=== PATIENT | male | born 1945 | race Caucasian/White ===

== ENCOUNTER 2017-06-27 22:02 | Inpatient (IN) | payer OTHER ==
[~2017-06-27] VITALS: Ht 180.3 cm; Wt 118.2 kg
[~2017-06-27 22:02] MED LIST: ACID CONTROL150 MG PO; ENDOCET 10-3251 EACH PO; HYDROCHLOROTHIA25 MG PO; LIPITOR40 MG PO; LITE COAT ASPI325 M1 PO; SPIRIVA1 INHALATI IH; STOOL SOFTENER100 MG PO
[2017-06-28] MEDS ORDERED: IRON325 M1 PO (06:18)
[2017-06-28 06:25] VITALS: BP 177/94
[2017-06-28 07:15] VITALS: BP 177/94
[2017-06-28 11:17] VITALS: BP 155/93
[2017-06-28 15:42] VITALS: BP 137/75
[2017-06-28 20:24] VITALS: BP 125/76
[2017-06-29 00:20] VITALS: BP 138/88
[2017-06-29 04:24] VITALS: BP 137/68
[2017-06-29 04:54] LABS: HEMATOCRIT 37.2 % (38.0-50.0); HEMOGLOBIN 12.5 G/DL (12.5-16.6); MCV 90.1 FL (86-99)
[2017-06-29] MEDS ORDERED: OXYCONTIN15 MG PO (08:28)
[2017-06-29 08:36] VITALS: BP 132/76
[2017-06-29 12:00] VITALS: BP 161/78
[2017-06-29 15:56] VITALS: BP 140/68
[2017-06-29 19:49] VITALS: BP 147/83
[2017-06-30 00:08] VITALS: BP 136/77
[2017-06-30 04:06] VITALS: BP 133/66
[2017-06-30 05:34] LABS: HEMATOCRIT 38.6 % (38.0-50.0); HEMOGLOBIN 12.7 G/DL (12.5-16.6); MCV 91.7 FL (86-99)
[2017-06-30 08:00] VITALS: BP 133/63
[2017-06-30] MEDS ORDERED: CELEBREX200 MG PO (08:09)
[2017-06-30 11:15] VITALS: BP 123/67
== END 2017-06-30 11:23 | disposition home or self-care (01) | DRG 483 ==
LOC: ENRESERV 22:02 → 2SOUTH 06-28 05:34 → 3WEST 06-28 11:01 → 2SOUTH 06-28 13:18 → 3WEST 06-30 11:23
PROVIDERS: Orthopaedic Surgery
PROC: 0RRK00Z Replacement of Left Shoulder Joint with Reverse Ball and Socket Synthetic Substitute, Open Approach (ICD-10-PCS; principal; 2017-06-28)
DX: M19.012 Primary osteoarthritis, left shoulder (principal); M75.102 Unspecified rotator cuff tear or rupture of left shoulder, not specified as traumatic; I10 Essential (primary) hypertension; J44.9 Chronic obstructive pulmonary disease, unspecified; K21.9 Gastro-esophageal reflux disease without esophagitis
CPT/HCPCS: 73020; 85014; 85018; 94640; 94640 76; C1713; J0131; J0690; J1100; J1885; J2250; J2405; J2795; J7050